=== PATIENT | female | born 2000 | race Caucasian/White ===

== ENCOUNTER 2018-12-11 16:27 | Observation (INO) ==
[2018-12-11 16:53] LABS: Amphetamine Screen,Urine Negative ng/mL (Cutoff=1000); Barbiturate Screen,Urine Negative ng/mL (Cutoff=200); Benzodiazepines Screen,Urine Negative ng/mL (Cutoff=200); Cannabinoid Screen,Urine Negative ng/mL (Cutoff = 50); Cocaine Screen,Urine Negative ng/mL (Cutoff= 300); Opiate Screen,Urine Negative ng/mL (Cutoff=300); Phencyclidine Screen,Urine Negative ng/mL (Cutoff=25)
[2018-12-11 17:11] LABS: Bilirubin,Urine Negative (Negative); Blood,Urine Negative (Negative); Color,Urine Yellow (Yellow); Glucose,Urine (UA) Normal (Normal); Ketones,Urine Negative (Negative); Leukocyte Esterase,Urine Trace (Negative); Nitrite,Urine Negative (Negative); Protein,Urine Negative (Neg-Trace); Specific Gravity,Urine 1.012 (1.010-1.025); Urobilinogen,Urine Normal (Normal)
[2018-12-11 17:17] LABS: Bacteria,Urine Few per hpf (None-Few); Hyaline Casts,Urine None Seen per lpf (None-Few); RBC,Urine 0-3 per hpf (0-3); Squamous Epithelial Cell,Urine Many per lpf (None-Few)
[2018-12-11 17:25] LABS: Clarity,Urine Slightly Cloudy (Clear)
--- NOTE | 2018-12-11 18:16 | Discharge Summary ---
Date of Encounter: 12/11/18 Time of Encounter: 18:15 - Discharge Diagnosis (1) 35 weeks gestation of Priority: Primary Status: Acute Comments: Follow up with Dr. Madrigal as scheduled on Friday PTL parameters discussed Discharge home (2) NST (non-stress test) reactive Priority: Secondary Status: Acute (3) Decreased movement during Priority: Secondary Status: Acute Comments: resolved education given on anterior placenta and movement Qualifiers: Fetus number: single or unspecified fetus Trimester: third trimester Qualified Code(s): O36.8130 - Decreased movements, third trimester, not applicable or unspecified - Discharge Medications Prescriptions: No Action Pnv95/Ferrous Fumarate/FA [ Vitamin Tablet] 1 each PO DAILY #31 tablet Omeprazole 20 mg PO DAILY #14 tablet. Home Medications: Pnv95/Ferrous Fumarate/FA [ Vitamin Tablet] 1 each PO DAILY #31 tablet 05/07/18 [Rx] Omeprazole 20 mg PO DAILY #14 tablet. 08/20/18 [Rx] Allergies/Adverse Reactions: Allergy/AdvReac Type Severity Reaction Status Date / Time No Known Allergies Allergy Verified 10/31/18 23:18 Data Procedures and tests throughout hospitalization: Laboratory Tests 12/11/18 12/11/18 16:30 16:30 Urine Color Yellow Urine Clarity Slightly Cloudy A Urine pH 6.0 Ur Specific [place] 1.012 Urine Protein Negative Urine Glucose (UA) Normal Urine Ketones Negative Urine Blood Negative Urine Nitrite Negative Urine Bilirubin Negative Urine Urobilinogen Normal Ur Leukocyte Esterase Trace H Urine Microscopic RBC 0-3 Urine Microscopic WBC 5-15 H Ur Squamous Epith Cells Many H Urine Bacteria Few Hyaline Casts None Seen Ur Culture Indicated? YES A Urine Opiates Screen Negative Ur Buprenorphine Scrn Negative Ur Barbiturates Screen Negative Ur Phencyclidine Scrn Negative Ur Amphetamines Screen Negative U Benzodiazepines Scrn Negative Urine Cocaine Screen Negative U Marijuana (THC) Screen Negative Ur Drug Screen Interp See Below Labs on day of discharge: Labs from last 24 hours 12/11/18 12/11/18 16:30 16:30 Urine Color Yellow Urine Clarity Slightly Cloudy A Urine pH 6.0 Ur Specific [place] 1.012 Urine Protein Negative Urine Glucose (UA) Normal Urine Ketones Negative Urine Blood Negative Urine Nitrite Negative Urine Bilirubin Negative Urine Urobilinogen Normal Ur Leukocyte Esterase Trace H Urine Microscopic RBC 0-3 Urine Microscopic WBC 5-15 H Ur Squamous Epith Cells Many H Urine Bacteria Few Hyaline Casts None Seen Ur Culture Indicated? YES A Urine Opiates Screen Negative Ur Buprenorphine Scrn Negative Ur Barbiturates Screen Negative Ur Phencyclidine Scrn Negative Ur Amphetamines Screen Negative U Benzodiazepines Scrn Negative Urine Cocaine Screen Negative U Marijuana (THC) Screen Negative Ur Drug Screen Interp See Below Date of admission: 12/11/18 16:27 Discharging clinician: Babita Hickman Anticipated date of discharge: 12/11/18 - Patient Status Disposition: Home, Self-Care Condition: Good Functional capacity at discharge: independent ambulation Overall status at discharge: patient is progressing back to baseline - Discharge Instructions Follow Up With: Doroteo Madrigal MD [Partnered Physician] - Additional Instructions: LABOR AND DELIVERY DISCHARGE INSTRUCTIONS Signs and Symptoms to be Reported to your Doctor Immediately: * Sudden gush, continuous or intermittent lead of fluid from vagina (note the time of gush and color of fluid) * Onset of bright red vaginal bleeding with or without pain (if you had a vaginal exam during this visit you may notice some dark red spotting. This is normal.) * Lower abdominal cramping or backache that is premenstrual-like feeling. * More than 6 contractions in one hour. * Burning during urination, having to urinate more frequently or pain in your mid-back. * A change in the baby's activity. This could be an increase or decrease in activity. * Severe headache which does not go away with tylenol. * Sudden swelling in the face, hands, arms and/or legs. * Upper abdominal pain - sometimes associated with heartburn or nausea and is not relieved by Maalox, Mylanta or Tums. * Dizziness or blurred vision or visual disturbances (seeing stars/lights). * Kick Counts One hour after a meal, lay down on one side in a quiet place. Count the number of [place] the baby moves during an hour. If less than 6 movements, notify your physician. Diet: *Force fluids - 8-10 tall glasses of fluid per day. May include popsicles and jello. 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 She was monitored for over 3 hours and found to be category 1 tracing for the entire time monitoring. After thorough search of her records, we found that she has an anterior placenta. I discussed the implications of having the and noted that it would be fine for the patient to return home. I advised that she may return at any point should she become concerned again. Time Attestation: Total time spent providing and/or coordinating discharge services: Time Spent: Less than 30 minutes Exam - Constitutional General appearance IM: A&O X 3, pleasant, no acute distress, answers questions appropriately - Respiratory Respiratory exam: Present: CTAB - Cardiovascular Cardiovascular exam IM: Present: RRR, +S1, +S2 - GI/Abdominal GI/Abdominal exam IM: normal bowel sounds, no peritoneal signs - Rectal Rectal exam: deferred - Uterine Tone: Firm - Extremities Exam Extremities exam IM: Present: full ROM, normal capillary refill, normal inspection, radial pulses palpable and symmetrical - Neurological Exam Neurological exam: alert, oriented X3, strengths equal and symetr throughout - VTE Reasons for not Prescribing Prophylaxis: Treatment not Indicated - Low risk for VTE
== END 2018-12-11 18:15 | disposition home or self-care (01) ==
LOC: 1NENULAB
PROVIDERS: ADMIT Advanced Practice Midwife; ATTEND Advanced Practice Midwife

== ENCOUNTER 2018-12-12 14:36 | Observation (INO) | END 2018-12-12 16:00 | disposition home or self-care (01) | LOC: 1NENULAB | PROVIDERS: ADMIT Obstetrics & Gynecology; ATTEND Obstetrics & Gynecology ==

== ENCOUNTER 2018-12-27 19:29 | Observation (INO) ==
[2018-12-27 20:07] LABS: Bilirubin,Urine Negative (Negative); Blood,Urine Negative (Negative); Clarity,Urine Cloudy (Clear); Color,Urine Yellow (Yellow); Glucose,Urine (UA) Normal (Normal); Ketones,Urine Negative (Negative); Leukocyte Esterase,Urine Trace (Negative); Nitrite,Urine Negative (Negative); PH,Urine 6.5 pH Units (5.0-8.0); Protein,Urine Negative (Neg-Trace); Specific Gravity,Urine 1.009 (1.010-1.025); Urobilinogen,Urine Normal (Normal)
[2018-12-27 20:09] LABS: Bacteria,Urine Few per hpf (None-Few); Hyaline Casts,Urine None Seen per lpf (None-Few); RBC,Urine 0-3 per hpf (0-3); Squamous Epithelial Cell,Urine Many per lpf (None-Few)
[2018-12-27 20:17] LABS: Amphetamine Screen,Urine Negative ng/mL (Cutoff=1000); Barbiturate Screen,Urine Negative ng/mL (Cutoff=200); Benzodiazepines Screen,Urine Negative ng/mL (Cutoff=200); Cannabinoid Screen,Urine Negative ng/mL (Cutoff = 50); Cocaine Screen,Urine Negative ng/mL (Cutoff= 300); Opiate Screen,Urine Negative ng/mL (Cutoff=300); Phencyclidine Screen,Urine Negative ng/mL (Cutoff=25)
== END 2018-12-27 20:50 | disposition home or self-care (01) ==
LOC: 1NENULAB
PROVIDERS: ADMIT Advanced Practice Midwife; ATTEND Advanced Practice Midwife

== ENCOUNTER 2018-12-28 21:21 | Observation (INO) ==
[2018-12-28 21:43] LABS: Bilirubin,Urine Negative (Negative); Blood,Urine Negative (Negative); Clarity,Urine Clear (Clear); Color,Urine Yellow (Yellow); Glucose,Urine (UA) Normal (Normal); Ketones,Urine 40 mg/dL (Negative); Leukocyte Esterase,Urine Negative (Negative); Nitrite,Urine Negative (Negative); PH,Urine 6.5 pH Units (5.0-8.0); Protein,Urine Negative (Neg-Trace); Specific Gravity,Urine 1.013 (1.010-1.025); Urobilinogen,Urine Normal (Normal)
[2018-12-28 21:53] LABS: Amphetamine Screen,Urine Negative ng/mL (Cutoff=1000); Barbiturate Screen,Urine Negative ng/mL (Cutoff=200); Benzodiazepines Screen,Urine Negative ng/mL (Cutoff=200); Cannabinoid Screen,Urine Negative ng/mL (Cutoff = 50); Cocaine Screen,Urine Negative ng/mL (Cutoff= 300); Opiate Screen,Urine Negative ng/mL (Cutoff=300); Phencyclidine Screen,Urine Negative ng/mL (Cutoff=25)
--- NOTE | 2018-12-28 22:14 | Discharge Summary ---
Date of Encounter: 12/28/18 Time of Encounter: 22:13 - Discharge Diagnosis (1) 37 weeks gestation of Priority: Primary Status: Acute Comments: Admit to observation for possible SROM at 37w3d (2) Vaginal discharge during in third trimester Priority: Secondary Status: Acute Comments: SSE completed with small amount of thin white discharge noted on exam. Vaginosis panel completed and pending at time of note, FERN negative. If vaginosis returns positive, patient will be treated as indicated. (3) NST (non-stress test) reactive Priority: Secondary Status: Acute Comments: FHR 140 bpm, moderate variability, +15x15 accels, no decels. - Discharge Medications Prescriptions: No Action Pnv95/Ferrous Fumarate/FA [ Vitamin Tablet] 1 each PO DAILY #31 tablet Omeprazole 20 mg PO DAILY #14 tablet. Home Medications: Pnv95/Ferrous Fumarate/FA [ Vitamin Tablet] 1 each PO DAILY #31 tablet 05/07/18 [Rx] Omeprazole 20 mg PO DAILY #14 tablet. 08/20/18 [Rx] Allergies/Adverse Reactions: Allergy/AdvReac Type Severity Reaction Status Date / Time No Known Allergies Allergy Verified 10/31/18 23:18 Data Procedures and tests throughout hospitalization: Laboratory Tests 12/28/18 12/28/18 21:30 21:30 Urine Color Yellow Urine Clarity Clear Urine pH 6.5 Ur Specific [place] 1.013 Urine Protein Negative Urine Glucose (UA) Normal Urine Ketones 40 H Urine Blood Negative Urine Nitrite Negative Urine Bilirubin Negative Urine Urobilinogen Normal Ur Leukocyte Esterase Negative Ur Culture Indicated? NO Urine Opiates Screen Negative Ur Buprenorphine Scrn Negative Ur Barbiturates Screen Negative Ur Phencyclidine Scrn Negative Ur Amphetamines Screen Negative U Benzodiazepines Scrn Negative Urine Cocaine Screen Negative U Marijuana (THC) Screen Negative Ur Drug Screen Interp See Below Labs on day of discharge: Labs from last 24 hours 12/28/18 12/28/18 21:30 21:30 Urine Color Yellow Urine Clarity Clear Urine pH 6.5 Ur Specific [place] 1.013 Urine Protein Negative Urine Glucose (UA) Normal Urine Ketones 40 H Urine Blood Negative Urine Nitrite Negative Urine Bilirubin Negative Urine Urobilinogen Normal Ur Leukocyte Esterase Negative Ur Culture Indicated? NO Urine Opiates Screen Negative Ur Buprenorphine Scrn Negative Ur Barbiturates Screen Negative Ur Phencyclidine Scrn Negative Ur Amphetamines Screen Negative U Benzodiazepines Scrn Negative Urine Cocaine Screen Negative U Marijuana (THC) Screen Negative Ur Drug Screen Interp See Below Date of admission: 12/28/18 21:21 Discharging clinician: Daina Escobar Anticipated date of discharge: 12/28/18 - Patient Status Disposition: Home, Self-Care Condition: Good Functional capacity at discharge: independent ambulation Overall status at discharge: patient is progressing back to baseline - Discharge Instructions Follow Up With: Doroteo Madrigal MD [Partnered Physician] - - Diet and Activity Activity: resume usual activities as tolerated Diet: regular diet 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 She reports that she had fluid running down her legs after she got out of the shower and more once she sat on the toilet. She denies any fluid since that time. SSE completed with small amount of thin, white vaginal discharge. FERN sample collec tyler and was negative. Vaginosis panel collected and sent to lab. Patient reports positive movement, denies vaginal bleeding. Reactive NST noted. SVE 1 cm/50/-3. Cervix without change in 1 hour. Patient is scheduled to see Dr. Madrigal for routine care of , 12/31/18. Time Attestation: Total time spent providing and/or coordinating discharge services: Time Spent: Less than 30 minutes Exam - Constitutional General appearance IM: A&O X 3, pleasant, no acute distress, answers questions appropriately - Respiratory Respiratory exam: Present: CTAB. Absent: respiratory distress - Cardiovascular Cardiovascular exam IM: Present: RRR, +S1, +S2. Absent: irregular rhythm - GI/Abdominal GI/Abdominal exam IM: normal bowel sounds, soft - Rectal Rectal exam: deferred - External exam: normal external exam - Extremities Exam Extremities exam IM: Present: full ROM, normal capillary refill, normal inspection. Absent: calf tenderness - Neurological Exam Neurological exam: alert, normal gait, oriented X3 - VTE Reasons for not Prescribing Prophylaxis: Treatment not Indicated - Low risk for VTE
[2018-12-28 23:02] LABS: Candida DNA Not Detected (Not Detect); Gardnerella DNA Not Detected (Not Detect); Trichomonas DNA Not Detected (Not Detect)
== END 2018-12-28 23:00 | disposition home or self-care (01) ==
LOC: 1NENULAB
PROVIDERS: ADMIT Registered Nurse; ATTEND Registered Nurse

== ENCOUNTER 2019-01-01 19:25 | Observation (INO) ==
--- NOTE | 2019-01-01 21:08 | Discharge Summary ---
Date of Encounter: 01/01/19 Time of Encounter: 21:06 - Discharge Diagnosis (1) 38 weeks gestation of Priority: Primary Status: Acute Comments: Admit to observation for complaint of elevated blood pressure (2) Gestational diabetes mellitus (GDM) affecting first Priority: Secondary Status: Acute Comments: Continue blood sugar monitoring fasting and 2 hr PP To call office if PP are consistently over 200 NST Friday and Friday of next week, IOL 01/08/19 Plan of care made in collaboration with Dr. Lujan who spoke with Dr. Mac regarding patient status and uncontrolled blood sugar readings. Per his recommendations, IOL scheduled for 39.1 weeks and bi-weekly NSTs next week. (3) Elevated blood pressure affecting in third trimester, antepartum Priority: Secondary Status: Acute Comments: Patient reports elevated BP's with home monitoring. Patient had a couple of random elevated readings while here. Pre-eclampsia labs drawn and all returned within normal limits, PC ratio 0.18. Patient is to follow up as scheduled for routine visit on 01/04/19. (4) NST (non-stress test) reactive Priority: Secondary Status: Acute Comments: FHR 135 bpm, moderate variability, +15x15 accels, no decels. - Discharge Medications Prescriptions: No Action Pnv95/Ferrous Fumarate/FA [ Vitamin Tablet] 1 each PO DAILY #31 tablet Omeprazole 20 mg PO DAILY #14 tablet. Home Medications: Pnv95/Ferrous Fumarate/FA [ Vitamin Tablet] 1 each PO DAILY #31 tablet 05/07/18 [Rx] Omeprazole 20 mg PO DAILY #14 tablet. 08/20/18 [Rx] Allergies/Adverse Reactions: Allergy/AdvReac Type Severity Reaction Status Date / Time No Known Allergies Allergy Verified 01/01/19 19:42 Data Procedures and tests throughout hospitalization: Laboratory Tests 01/01/19 20:11 POC Glucose 153 H Labs on day of discharge: Labs from last 24 hours 01/01/19 20:11 POC Glucose 153 H Date of admission: 01/01/19 19:25 Discharging clinician: Daina Escobar Anticipated date of discharge: 01/01/19 - Patient Status Disposition: Home, Self-Care Condition: Good Functional capacity at discharge: independent ambulation Overall status at discharge: patient is progressing back to baseline - Discharge Instructions Additional Instructions: Keep regular scheduled appointment on 01/05/19. NST on Friday01/08/19 Return to L&D at 0600 on 01/09/19 for IOL. LABOR AND DELIVERY DISCHARGE INSTRUCTIONS Signs and Symptoms to be Reported to your Doctor Immediately: * Sudden gush, continuous or intermittent lead of fluid from vagina (note the time of gush and color of fluid) * Onset of bright red vaginal bleeding with or without pain (if you had a vaginal exam during this visit you may notice some dark red spotting. This is normal.) * Contractions that are 5 minutes apart (from the beginning of one contraction to the beginning of the next) and last 45-60 seonds; contractions that you can no longer walk, talk or laugh through. * A change in the baby's activity. This could be an increase or decrease in a ctivity. * Severe headache which does not go away with tylenol. * Sudden swelling in the face, hands, arms and/or legs. * Upper abdominal pain - sometimes associated with heartburn or nausea and is not relieved by Maalox, Mylanta or Tums. * Kick Counts __ One hour after a meal, lay down on one side in a quiet place. Count the number of time the baby moves during an hour. 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 She does report positive movement, denies vaginal bleeding and fluid leakage. FHR reactive with rare contractions noted. Patient reports blood sugars have been near 200 after meals but has not been keeping a log. She has not been placed on any medication to control her blood sugars. She states they had been diet controlled until recently. She reports elevated blood pressures with home monitoring but she only had a couple of elevated pressures while here. Her Pre-E labs returned normal and her PC ratio was 0.18. She is asymptomatic. Consulted with Dr. Lujan who spoke with Dr. Mac. He advised to schedule IOL at 39 weeks and get twice weekly NST's next week. She has an appointment for 01/05 with a BPP, RAMY already scheduled. She is to be scheduled for another NST on 01/08/19 and arrive at 0600 on 01/09/[address] Weldon is the on-call physician that day and he was notified of need for IOL and accepts. Patient is aware of need for IOL and when to arrive. She does express frustration with her care since her glucose levels have been elevated. We discussed reasons for not inducing her at this point and Dr. Mac recommendation for delivery. She understands to call the office if her blood sugars are consistently above 200. She is to return to office on 01/05 for scheduled appointment. Time Attestation: Total time spent providing and/or coordinating discharge services: Time Spent: Less than 30 minutes Exam - Constitutional General appearance IM: A&O X 3, pleasant, no acute distress, answers questions appropriately - Respiratory Respiratory exam: Present: CTAB. Absent: respiratory distress - Cardiovascular Cardiovascular exam IM: Present: RRR, +S1, +S2. Absent: irregular rhythm - GI/Abdominal GI/Abdominal exam IM: normal bowel sounds, soft - Rectal Rectal exam: deferred - Extremities Exam Extremities exam IM: Present: full ROM, normal capillary refill, normal inspection. Absent: calf tenderness - Neurological Exam Neurological exam: alert, normal gait, oriented X3, reflexes normal - VTE Reasons for not Prescribing Prophylaxis: Treatment not Indicated - Low risk for VTE
[2019-01-01 21:30] LABS: Basophils # 0.1 K/mcL (0.0-0.2); Basophils % 0.4 %; Eosinophils # 0.3 K/mcL (0.0-0.6); Eosinophils % 1.8 %; Hematocrit 31.7 % (35.3-44.9); Hemoglobin 10.3 g/dL (11.5-15.4); Lymphocytes # 4.1 K/mcL (0.6-4.6); Lymphocytes % 25.7 %; Mean Corpuscular HGB Conc 32.5 g/dL (31.6-35.5); Mean Corpuscular Hemoglobin 26.1 pg (28.0-33.3); Mean Corpuscular Volume 80.3 fL (83.0-100.0); Mean Platelet Volume 11.3 fL (9.4-12.4); Monocytes # 1.3 K/mcL (0.0-1.3); Monocytes % 8.4 %; Platelet Count 301 K/mcL (140-400); Red Blood Count 3.95 M/mcL (3.82-4.97); Red Cell Distribution Width 13.4 % (11.5-14.5); Segmented Neutrophils % 62.7 %; White Blood Count 15.9 K/mcL (4.3-11.1)
[2019-01-01 21:43] LABS: Amphetamine Screen,Urine Negative ng/mL (Cutoff=1000); Barbiturate Screen,Urine Negative ng/mL (Cutoff=200); Benzodiazepines Screen,Urine Negative ng/mL (Cutoff=200); Cannabinoid Screen,Urine Negative ng/mL (Cutoff = 50); Cocaine Screen,Urine Negative ng/mL (Cutoff= 300); Opiate Screen,Urine Negative ng/mL (Cutoff=300); Phencyclidine Screen,Urine Negative ng/mL (Cutoff=25); Protein/Creatinine Ratio,Urine 0.18 mg/mg (0.00-0.20)
[2019-01-01 21:52] LABS: Alanine Aminotransferase 8 Units/L (7-52); Aspartate Amino Transferase 14 Units/L (13-39); BUN/Creatinine Ratio 15 (6-26); Blood Urea Nitrogen 5 mg/dL (6-20); Lactate Dehydrogenase 152 Units/L (140-271); Uric Acid 4.1 mg/dL (2.3-7.6); eGFR For African Americans > 60 (> 60); eGFR For Non-African Americans > 60 (> 60)
== END 2019-01-01 22:06 | disposition home or self-care (01) ==
LOC: 1NENULAB
PROVIDERS: ADMIT Advanced Practice Midwife; ATTEND Advanced Practice Midwife

== ENCOUNTER 2019-01-02 16:17 | Observation (INO) ==
[2019-01-02 16:46] LABS: Amphetamine Screen,Urine Negative ng/mL (Cutoff=1000); Barbiturate Screen,Urine Negative ng/mL (Cutoff=200); Benzodiazepines Screen,Urine Negative ng/mL (Cutoff=200); Cannabinoid Screen,Urine Negative ng/mL (Cutoff = 50); Cocaine Screen,Urine Negative ng/mL (Cutoff= 300); Opiate Screen,Urine Negative ng/mL (Cutoff=300); Phencyclidine Screen,Urine Negative ng/mL (Cutoff=25)
--- NOTE | 2019-01-02 17:13 | OB/GYN Progress Note ---
Date of Encounter: 01/02/19 Time of Encounter: 17:08 - Assessment and Plan (1) 38 weeks gestation of Current Visit: Yes Status: Acute Reactive NST FSBS 173 Blood pressures stable Discussed POC with Dr Sadler. Discussed symptoms of DKA with patient and when to return to care Patient expressed frustration; encouraged to seek second opinion which patient declines at this time Discharge home with Pre-E, DKA, and labor precautions Follow up in the office on Friday with glucose and food logs IOL scheduled on next Friday (2) Gestational diabetes mellitus (GDM) affecting first Current Visit: Yes Status: Acute (3) NST (non-stress test) reactive Current Visit: Yes Status: Acute Subjective - Subjective Principal diagnosis: elevated blood glucose Interval history: Ms Jacobo is a at 38 weeks and 1 day that presents to triage with c/o elevated blood sugar of 220 at home today. She states it elevates regardless of what she eats, "I had sanchez and eggs and then it shot up!". Encouraged patient to keep food journal and blood sugar journal to give to Dr Carson on Friday. Patient also concerned with elevated blood pressures at home of 140's over 90's. Patient denies headaches, vision changes, epigastric pain, leaking of fluid, contractions, vaginal bleeding. Appreciates positive movement. Blood pressures were normal in triage today; Pre-E labs normal within past 24 hours. Of note, patient has had 2 providers this and is transferring to her third this Friday. She was also seen at [facility] 2 nights ago for similar complaints and again last night for the same here. Her case was discussed with Dr Mac who recommended NSTs x 2 this week and IOL at 39 weeks. Antepartum ROS: movement normal, no vaginal bleeding, no contractions Objective - Vital Signs Vital Signs: Intake and Output 01/02/19 01/02/19 01/02/19 07:59 15:59 23:59 Other: Weight 76.7 kg Patient Weight 01/02/19 23:59 Weight 76.7 kg - Exam FHR: auscultation normal, category 1 FHR comments: Reactive NST No contractions per toco, palpation, patient report Auscultation: bilateral: normal Abdomen: Present: normal appearance, soft, gravid. Absent: tenderness Uterus: Present: normal. Absent: firm
== END 2019-01-02 17:13 | disposition home or self-care (01) ==
LOC: 1NENULAB
PROVIDERS: ADMIT Advanced Practice Midwife; ATTEND Advanced Practice Midwife